=== PATIENT | female | born 1950 | race Caucasian/White ===

== ENCOUNTER → 2016-05-29 | Outpatient (CLI) | payer MEDICARE | LOC: OPSV 05-05 09:00 → CT 05-05 11:30 → OPSV 05-15 09:00 | DX: C34.01 Malignant neoplasm of right main bronchus (principal); C77.1 Secondary and unspecified malignant neoplasm of intrathoracic lymph nodes; E86.0 Dehydration; Z45.89 Encounter for adjustment and management of other implanted devices; Z88.0 Allergy status to penicillin | CPT/HCPCS: 71260; 96360; 96361; J1642; J7030; J7050; Q9962 ==